=== PATIENT | male | born 1975 | race Caucasian/White ===

== ENCOUNTER 2023-12-11 15:47 | Day surgery (SDC) | payer BC ==
[2023-12-11] MEDS ORDERED: Sodium Chloride 0.9(Preservative Free) 10 ML IJ ONE (15:48)
[2023-12-11] MEDS ORDERED: Decadron 4 MG INJ IV ONE (15:48)
[2023-12-11] MEDS ORDERED: XYLOCAINE-MPF 1% 5ML SDV IJ ONE (15:48)
[2023-12-11] MEDS ORDERED: Lactated Ringers 1,000 ML IV ONE (17:41)
--- NOTE | 2023-12-11 20:22 | XRAY ---
Indication: Cervical JAYY. Intraoperative fluoroscopy provided for 26 seconds. 4 digital spot images submitted for interpretation demonstrates posterior needle tip projecting posterior to cervical thoracic junction. Small amount of contrast injected for needle tip placement. Correlate with intraoperative findings/report.
--- NOTE | 2023-12-12 08:44 | XRAY ---
26 seconds of fluoroscopy was used in surgery for a cervical JAYY.
== END 2023-12-11 18:43 | disposition home or self-care (01) ==
LOC: SDC-PAIN 15:47
PROVIDERS: ATTEND Psychiatry & Neurology Pain Medicine
DX: M54.12 Radiculopathy, cervical region (principal)
CPT/HCPCS: 62321; 72040; 77003; J1100; Q9966

== ENCOUNTER 2025-01-14 07:52 | Day surgery (SDC) | payer BC ==
[2025-01-14] MEDS ORDERED: dexAMETHasone sodium phosphate IJ ONE (07:53)
[2025-01-14] MEDS ORDERED: LIDOCAINE HCL 2% 100 MG/5 ML IJ ONE (07:53)
[2025-01-14] MEDS ORDERED: Lactated Ringers 500 ML IV ONE (08:44)
[2025-01-14] MEDS ORDERED: propofoL IV ONE (10:25)
--- NOTE | 2025-01-14 11:07 | XRAY ---
Indication: Left C2-C4 MBB. Intraoperative fluoroscopy provided for 26 seconds. 2 digital spot image submitted for interpretation demonstrates posterior needle tips projecting over expected left C2-C4 nerve roots. Correlate with intraoperative findings/report. Incidental lower cervical fusion hardware.
--- NOTE | 2025-01-14 11:09 | XRAY ---
26 seconds of fluoroscopy was used in surgery for a left C2-C4 MBB.
== END 2025-01-14 10:55 | disposition home or self-care (01) ==
LOC: SDC-PAIN 07:52
PROVIDERS: ATTEND Psychiatry & Neurology Pain Medicine
DX: M47.812 Spondylosis without myelopathy or radiculopathy, cervical region (principal); E11.9 Type 2 diabetes mellitus without complications
CPT/HCPCS: 64490; 64491; 72040; 77002; 82947; J1100; J2704

== ENCOUNTER 2025-02-17 07:26 | Day surgery (SDC) | payer BC ==
[2025-02-17] MEDS ORDERED: BUPIVACAINE 0.5% VIAL IJ ONE (07:27)
[2025-02-17] MEDS ORDERED: dexAMETHasone sodium phosphate IJ ONE (07:27)
[2025-02-17] MEDS ORDERED: Lactated Ringers 500 ML IV ONE (07:44)
[2025-02-17] MEDS ORDERED: propofoL IV ONE ×2 (09:08→09:14)
--- NOTE | 2025-02-17 11:38 | XRAY ---
Indication: Left C2-C4 MBB. Intraoperative fluoroscopy provided for 30 seconds. 3 digital spot image submitted for interpretation demonstrates posterior needle tips projecting over expected left C2-C4 nerve roots. Correlate with intraoperative findings/report. Incidental incompletely visualized lower cervical fusion hardware.
--- NOTE | 2025-02-17 12:57 | XRAY ---
30 seconds of fluoroscopy was used in surgery for a left C2-C4 MBB.
== END 2025-02-17 09:33 | disposition home or self-care (01) ==
LOC: SDC-PAIN 07:26
PROVIDERS: ATTEND Psychiatry & Neurology Pain Medicine
DX: M47.812 Spondylosis without myelopathy or radiculopathy, cervical region (principal); E11.9 Type 2 diabetes mellitus without complications
CPT/HCPCS: 64490; 64491; 72040; 82947; J1100; J2704